=== PATIENT | male | born 1990 | race Two or more races ===

== ENCOUNTER 2020-08-31 13:56 | Emergency (ER) | payer OTHER, MEDICAID, SELFPAY ==
[2020-08-31 14:51] VITALS: BP 148/68; PULSE 74; RESP 18; O2SAT 97; BMI 30.8
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
== END 2020-08-31 16:44 | disposition home or self-care (01) ==
PROVIDERS: Emergency Provider Internal Medicine
DX: S29.012A Strain of muscle and tendon of back wall of thorax, initial encounter (principal); V49.40XA Driver injured in collision with unspecified motor vehicles in traffic accident, initial encounter; Y93.9 Activity, unspecified; Y92.410 Unspecified street and highway as the place of occurrence of the external cause; Y99.9 Unspecified external cause status
CPT/HCPCS: 99283

== ENCOUNTER 2022-04-21 10:01 | Emergency (ER) | payer MEDICAID, SELFPAY ==
[2022-04-21 11:33] VITALS: BP 122/67; PULSE 90; RESP 18; TEMP 36.7; O2SAT 96; BMI 31.5
--- NOTE | 2022-04-21 11:33 | ED_ITS ---
HPI - Back Pain/Injury General Chief Complaint: Back Pain/Injury <RIOS Hardy - Last Filed: 04/21/22 11:42> Stated Complaint: lower back pain going into legs <RIOS Hardy - Last Filed: 04/21/22 11:42> Time Seen by Provider: 04/21/22 11:37 <RIOS Hardy - Last Filed: 04/21/22 11:42> Source: patient <RIOS Hardy - Last Filed: 04/21/22 11:42> Mode of arrival: ambulatory <RIOS Hardy Last Filed: 04/21/22 11:42> Limitations: no limitations <RIOS Hardy Last Filed: 04/21/22 11:42> History of Present Illness HPI Narrative: 32 yo male presents to the ER with nontraumatic low back pain for the last 1 week. He reports is it worse at night and radiates down both of his legs. 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 He denies any bowel or bladder issues. No weakness, numbness or tingling in the legs. He has been taking ibuprofen with minimal relief. <RIOS Hardy - Last Filed: 04/21/22 11:42> MD elicited complaint: back pain <RIOS Hardy - Last Filed: 04/21/22 11:42> Pertinent past history: prior back pain <RIOS Hardy - Last Filed: 04/21/22 11:42> Onset (ago): week(s) (1) <RIOS Hardy - Last Filed: 04/21/22 11:42> Timing: progressively worsening <RIOS Hardy Last Filed: 04/21/22 11:42> Severity: severe <RIOS Hardy Last Filed: 04/21/22 11:42> Similar Symptoms Previously: Yes <RIOS Hardy - Last Filed: 04/21/22 11:42> Quality: stabbing and spasming <RIOS Hardy Last Filed: 04/21/22 11:42> Location: right lower back and left lower back <RIOS Hardy Last Filed: 04/21/22 11:42> Radiation: left upper leg and right upper leg <RIOS Hardy - Last Filed: 04/21/22 11:42> Exacerbating factors: supine positioning <RIOS Hardy - Last Filed: 04/21/22 11:42> Relieving factors: none <RIOS Hardy Last Filed: 04/21/22 11:42> Context: unknown <RIOS Hardy Last Filed: 04/21/22 11:42> Associated symptoms: denies other symptoms <RIOS Hardy - Last Filed: 04/21/22 11:42> Treatments prior to arrival: NSAIDS <RIOS Hardy Last Filed: 04/21/22 11:42> Related Data Home Medications: Previous Rx's Medication Instructions Recorded acetaminophen 500 mg tablet 1,000 mg PO QID PRN pain #30 tabs 08/31/20 cyclobenzaprine 5 mg tablet 5 mg PO TID PRN muscle spasm #10 08/31/20 tabs ibuprofen 600 mg tablet 600 mg PO Q6H PRN pain #20 tabs 08/31/20 cyclobenzaprine 10 mg tablet 10 mg PO TID PRN muscle spasm #14 04/21/22 tabs lidocaine 5 % topical patch 1 patch topical DAILY #15 ea 04/21/22 prednisone 50 mg tablet 50 mg PO DAILY #5 tabs 04/21/22 <RIOS Hardy Last Filed: 04/21/22 11:42> Allergies/Adverse Reactions: Allergies Allergy/AdvReac Type Severity Reaction Status Date / Time No Known Allergies Allergy Verified 04/21/22 11:33 <RIOS Hardy Last Filed: 04/21/22 11:42> Review of Systems Review of Systems: Yes all other systems are reviewed and are negative <RIOS Hardy Last Filed: 04/21/22 11:42> [facility] Social History Social History: Social History Advance Directives: No <RIOS Hardy Last Filed: 04/21/22 11:42> Physical Exam Vital Signs: Vital Signs: Last Vital Signs Temp 98.0 F 04/21/22 11:33 Pulse 90 04/21/22 11:33 Resp 18 04/21/22 11:33 BP 122/67 04/21/22 11:33 Pulse Ox 96 04/21/22 11:33 O2 Del Method 04/21/22 11:33 BMI result Body Mass Index 31.5 <RIOS Hardy - Last Filed: 04/21/22 11:42> Vital Signs: Last Vital Signs Temp 98.0 F 04/21/22 11:33 Pulse 90 04/21/22 11:33 Resp 18 04/21/22 11:33 BP 122/67 04/21/22 11:33 Pulse Ox 96 04/21/22 11:33 O2 Del Method 04/21/22 11:33 BMI result Body Mass Index 31.5 <Ángel Ba MD - Last Filed: 04/25/22 11:46> Appearance: Alert. Oriented X3. No acute distress. HEENT: normal inspection CVS: Normal heart rate and rhythm. Pulses normal. Respiratory: No respiratory distress. Skin: Skin warm and dry. Normal skin color. Normal skin turgor. No rashes. Back: normal inspection, normal ROM, pain with flexion and rotation. tenderness of the paraspinous muscles of the lumbar area, no midline tenderness. Extremities: normal inspection x4. normal ROM Neuro: Oriented X 3. No motor deficit. No sensory deficit. Steady gait. <RIOS Hardy - Last Filed: 04/21/22 11:42> Course Course Course Narrative: 32 yo male presenting with low back pain that radiates into his legs. Exam and clinical presentation are c/w MSK pain, spasm, possible sciatica. Will treat accordingly and have him f/u with his PCP. Stable for d/c home. <RIOS Hardy - Last Filed: 04/21/22 11:42> Medical Decision Making Differential Diagnosis Differential Diagnoses: The differential diagnosis associated with the presentation includes <RIOS Hardy - Last Filed: 04/21/22 11:42> Inflammatory disorders, malignancy, , trauma, osteoporosis, nerve root compression, radiculopathy, plexopathy, degenerative disc disease, disc herniation, spinal stenosis, sacroiliac joint dysfunction, facet joint injury, doubt infection like epidural abscess or diskitis <RIOS Hardy - Last Filed: 04/21/22 11:42> External Record Review External record reviewed: Outpatient record, Prior outpatient labs and Prior outpatient radiology <RIOS Hardy - Last Filed: 04/21/22 11:42> Prescription Management I considered prescription management with: Pain Medication <RIOS Hardy - Last Filed: 04/21/22 11:42> Attestation Attending Attestation: I reviewed FLY SETTER/PA/Resident note, assessment and plan. I agree with the documentation, assessment and plan unless otherwise stated. <Ángel Ba MD - Last Filed: 04/25/22 11:46> Critical Care Time Critical Care Time Critical Care Time: No <RIOS Hardy - Last Filed: 04/21/22 11:42> Discharge Plan Discharge Clinical Impression: Low back pain <RISO Hardy - Last Filed: 04/21/22 11:42> Patient Disposition: Home, Self-Care <RIOS Hardy - Last Filed: 04/21/22 11:42> Instructions: Low Back Strain (ED), Lower Back Exercises (ED) <RIOS Hardy - Last Filed: 04/21/22 11:42> Additional Instructions: No bending, lifting or twisting. Use ice several times per day for 20 minutes at a time for the next 48 hours and then change to heat. Take medications as prescribed to help with pain and discomfort. Follow up with your Primary Care Doctor this week. If your pain worsens, if you develop new numbness, tingling, weakness, loss of function or incontinence call 911 or come back to the ER right away for evaluation. <RIOS Hardy - Last Filed: 04/21/22 11:42> Prescriptions: New lidocaine 5 % adhesive patch,medicated 1 patch topical DAILY Qty: 15 0RF Rx Instructions: leave on most painful area for up to 12 hrs prednisone 50 mg tablet 50 mg PO DAILY Qty: 5 0RF cyclobenzaprine 10 mg tablet 10 mg PO TID PRN (Reason: muscle spasm) Qty: 14 0RF No Action acetaminophen 500 mg tablet 1,000 mg PO QID PRN (Reason: pain) Qty: 30 0RF cyclobenzaprine 5 mg tablet 5 mg PO TID PRN (Reason: muscle spasm) Qty: 10 0RF ibuprofen 600 mg tablet 600 mg PO Q6H PRN (Reason: pain) Qty: 20 0RF <RIOS Hardy - Last Filed: 04/21/22 11:42> Interventions: ED Discharge Assessment Last Done: 04/21/22 11:41 <RIOS Hardy - Last Filed: 04/21/22 11:42> Discharge Date/Time: 04/21/22 11:52 <RIOS Hardy - Last Filed: 04/21/22 11:42>
== END 2022-04-21 11:52 | disposition home or self-care (01) ==
LOC: HO.ED 11:40
PROVIDERS: Emergency Provider Emergency Medicine
DX: M54.50 Low back pain, unspecified (principal)
CPT/HCPCS: 99282; 99283

== ENCOUNTER 2022-05-08 08:49 | Emergency (ER) | payer MEDICAID, SELFPAY ==
--- NOTE | ~2022-05-08 | CT_ITS ---
EXAMINATION: CT head/brain wo IV con CLINICAL INFORMATION: Reason for Exam Fall after syncopal episode COMPARISON: None. TECHNIQUE: Contiguous axial imaging was performed from the skull base to vertex without intravenous contrast. Sagittal and coronal reformatted images were obtained. This CT examination was performed using dose optimization techniques as appropriate, variously including the following: * Automated exposure control * Adjustment of mA and/or kV according to patient size (this includes techniques or standardized protocols for targeted exams where dose is matched to indication/reason for exam; i.e. extremities or head) Use of iterative reconstruction technique DLP: 770 mGy-cm FINDINGS: Mildly displaced nasal bone fracture. Nasal soft tissue swelling. The mastoids are clear. Mucosal thickening in the left posterior ethmoid complex. There is no evidence of acute intracranial hemorrhage or territorial infarction. No abnormal mass effect or midline shift is seen. Ho to white matter differentiation is well preserved. No extra-axial fluid collections are identified. No hydrocephalus. No significant volume loss. There is no abnormal attenuation within the brain parenchyma. CT/CT head/brain wo IV con IMPRESSION: 1. No acute intracranial abnormality including hemorrhage, mass effect, hydrocephalus, or acute territorial edematous infarction. 2. Mildly displaced nasal bone fracture
--- NOTE | ~2022-05-08 | XR_ITS ---
EXAMINATION: XR NASAL BONES CLINICAL INFORMATION: Fracture. COMPARISON: None TECHNIQUE: 3 views of the nasal bones were obtained. XR/XR nasal bones min 3V FINDINGS/IMPRESSION: No fracture of the distal end of the nasal bone is depressed approximately 2 mm, namely approximately the thickness of the nasal bone. The nasal septum appears intact. No fluid is seen within the paranasal sinuses.
[2022-05-08 08:58] VITALS: BP 133/81; PULSE 90; RESP 18; TEMP 36.7; O2SAT 100; BMI 32.3
[2022-05-08 09:15] LABS: Glucose, Whole Blood 89 mg/dL (60-115)
[2022-05-08 09:29] LABS: MANUAL DIFF FLAG NO
[2022-05-08 09:30] LABS: Basophils Percent Auto 0.4 % (0-2); Eosinophils Absolute Auto 0.1 X10*3/uL (0.0-0.4); Eosinophils Percent Auto 0.4 % (0-4); Hematocrit 50.1 % (42.0-52.0); Hemoglobin 16.8 g/dl (14.0-18.0); Imm Gran Abs Auto 0.03 X10*3/uL (0.00-0.03); Imm Gran Pct Auto 0.3 % (0.0-0.4); Lymphocytes Absolute Auto 2.2 X10*3/uL (1.2-4.9); Lymphocytes Percent Auto 20.1 % (20-40); Mean Corpuscular HGB Conc 33.5 g/dl (31.0-36.0); Mean Corpuscular Hemoglobin 31.9 pg (27.0-33.0); Mean Corpuscular Volume 95.2 fL (80.0-98.0); Mean Platelet Volume 10.3 fL (9.4-12.4); Monocytes Absolute Auto 0.8 X10*3/uL (0.1-1.2); Monocytes Percent Auto 6.7 % (2-11); Neutrophils Percent Auto 72.1 % (45-73); Platelet Count 305 X10*3/uL (160-400); Red Blood Count 5.26 X10*6/uL (4.60-5.80); Red Cell Distribution Width 11.2 % (11.0-16.0); White Blood Count 11.2 X10*3/uL (4.8-10.8)
[2022-05-08 09:44] LABS: Alanine Aminotransferase 19 U/L (0-40); Albumin Level 4.5 g/dL (3.5-5.0); Alkaline Phosphatase 98 U/L (39-117); Anion Gap 13 (12-20); Aspartate Amino Transferase 20 U/L (5-37); Bilirubin Total 1.1 mg/dL (0.0-1.0); Blood Urea Nitrogen 14 mg/dL (9-16); Calcium 9.6 mg/dL (8.4-10.2); Carbon Dioxide 26 mmol/L (22-29); Chloride 105 mmol/L (96-108); Creatinine Clr Calc Pharmacy 111.2; Estimated Glomerular Filt Rate > 60; Glucose Random 102 mg/dL (60-115); Potassium 4.3 mmol/L (3.3-5.1); Sodium 140 mmol/L (135-145); Total Protein 7.4 g/dL (6.5-8.0)
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
--- NOTE | 2022-05-08 11:50 | ECG_ITS ---
Test Reason : SYNCOPE Blood Pressure : / mmHG Vent. Rate : 067 BPM Atrial Rate : 067 BPM P-R Int : 138 ms QRS Dur : 096 ms QT Int : 360 ms P-R-T Axes : 054 005 015 degrees QTc Int : 380 ms Normal sinus rhythm with sinus arrhythmia Normal ECG No previous ECGs available Referred By: Michoacano Marie Electronically Signed By:BHAVNA AKERS
[2022-05-08 12:43] LABS: Troponin-I High Sensitivity < 3.5 ng/L (<3.5-35.0)
== END 2022-05-08 14:50 | disposition home or self-care (01) ==
PROVIDERS: Physician Assistant Medical; Emergency Provider Emergency Medicine
DX: S02.2XXA Fracture of nasal bones, initial encounter for closed fracture (principal); R55 Syncope and collapse; R51.9 Headache, unspecified; W01.0XXA Fall on same level from slipping, tripping and stumbling without subsequent striking against object, initial encounter; Y93.9 Activity, unspecified; Y92.9 Unspecified place or not applicable; Y99.9 Unspecified external cause status; Z79.899 Other long term (current) drug therapy
CPT/HCPCS: 36415; 70160; 70450; 80053; 82947; 84484; 85025; 93005; 96372; 99283; 99284